=== PATIENT | male | born 1985 | race Two or more races ===

== ENCOUNTER 2019-11-01 12:05 | Emergency (ER) | payer SELFPAY ==
[~2019-11-01] VITALS: Ht 185.4 cm; Wt 86.6 kg
[2019-11-01 12:08] VITALS: BP 110/73
--- NOTE | 2019-11-01 12:09 | NUR ---
ED Nurse Note: Brought in by ambulance from home due to feeling weak, dizzy, anxious and tingling and numbness in hands since this morning. Patient has hx of panic attack. Patient started taking Zoloft about 1 week ago. Patient awake, alert, oriented x 4. Regular, unlabored breathing noted. Bed in lowest position.
[2019-11-01] MEDS ORDERED: DiphenhydrAMINE 50mg/ml Inj IVP ONE (12:15)
[2019-11-01] MEDS ORDERED: Metoclopramide 10mg/2ml Inj IVP ONE (12:15)
[2019-11-01] MEDS ORDERED: HYDROXYZINE HCL50 M1 PO (12:16)
[2019-11-01] MEDS ORDERED: ZOLOFT50 MG ORAL (12:17)
[2019-11-01 12:48] LABS: APPEARANCE,URINE CLEAR; BILIRUBIN, URINE NEGATIVE (NEGATIVE); COLOR,URINE AMBER; GLUCOSE, URINE (UA) NEGATIVE (NEGATIVE); KETONES,URINE 3+ (NEGATIVE); LEUKOCYTE ESTERASE ,URINE NEGATIVE (NEGATIVE); NITRITE,URINE NEGATIVE (NEGATIVE); PH,URINE 7 (4.5-8.0); PROTEIN,URINE 1+ (NEGATIVE); UROBILINOGEN,URINE NORMAL MG/DL (0.0-1.0)
[2019-11-01 12:50] LABS: BASOPHILS % (AUTO) 0.5 % (0.0-2.0); EOSINOPHILS % (AUTO) 0.1 % (0.0-3.0); HEMATOCRIT 48.4 % (42.0-52.0); HEMOGLOBIN 16.6 G/DL (14.2-18.0); LYMPHOCYTES % (AUTO) 15.8 % (20.0-45.0); MEAN CORPUSCULAR VOLUME 85 FL (80-99); MONOCYTES % (AUTO) 4.3 % (1.0-10.0); NEUTROPHILS % (AUTO) 79.4 % (45.0-75.0); PLATELET COUNT 311 K/UL (150-450); RED BLOOD COUNT 5.71 M/UL (4.70-6.10); RED CELL DISTRIBUTION WIDTH 10.7 % (11.6-14.8); WHITE BLOOD COUNT 7.9 K/UL (4.8-10.8)
[2019-11-01 12:56] LABS: ANION GAP 15 mmol/L (5-15); BLOOD UREA NITROGEN 12 mg/dL (7-18); CALCIUM 9.4 MG/DL (8.5-10.1); CARBON DIOXIDE 24 MMOL/L (21-32); CHLORIDE 101 MMOL/L (98-107); CREATININE 1.2 MG/DL (0.55-1.30); POTASSIUM 3.6 MMOL/L (3.5-5.1); SODIUM 140 MMOL/L (136-145)
--- NOTE | 2019-11-01 13:10 | NUR ---
ED Nurse Note: PT STATES THAT HE FELT BETTER AND NOT NAUSEAUS ANYMORE TAKING MEDICATIONS.
[2019-11-01 13:12] LABS: ALANINE AMINOTRANSFERASE 31 U/L (12-78); ALBUMIN 4.5 G/DL (3.4-5.0); ALBUMIN/GLOBULIN RATIO 1.1 (1.0-2.7); ALKALINE PHOSPHATASE 85 U/L (46-116); ASPARTATE AMINO TRANSFERASE 20 U/L (15-37); BILIRUBIN,TOTAL 1.2 MG/DL (0.2-1.0); CREATINE KINASE 86 U/L (26-308)
[2019-11-01 13:17] LABS: BILIRUBIN,DIRECT 0.2 MG/DL (0.0-0.3)
--- NOTE | 2019-11-01 13:28 | Diagnostic Imaging Report ---
Indication: Dyspnea Comparison: None A single view chest radiograph was obtained. Findings: Cardiomediastinal appearance is within normal limits for age. The lungs are clear. Pulmonary vascularity is appropriate. The diaphragmatic contour is smooth and costophrenic angles are sharp. No pleural effusions are identified. The bones are unremarkable. Impression: No acute findings
--- NOTE | 2019-11-01 13:49 | Emergency Room Report ---
History of Present Illness General Chief Complaint: Generalized Weakness Source: Patient Present Illness HPI 34-year-old male with history of anxiety brought in by paramedics due to feeling weak and anxious for several days. Patient reports that he used to take only hydroxyzine at night to help him sleep however has been cutting it back in 11/13 x 1 week after an urgent care that he went to a week ago started him on Zoloft 50 mg daily. Reports that he has not established a therapist yet and he does not believe that this is psychological and reports that since he gets the palpitations his heart related. Denies any drug use, chest pain, shortness of breath, smoking tobacco, alcohol intake. Reports to occasionally using marijuana. Patient went to a different emergency room few days ago, had a full work-up, was told to follow-up with her primary care provider, complains of nausea at this time. Vitals appear to be within normal limits. Denies suicidal homicidal ideations. Allergies: Coded Allergies: PENICILLINS (Verified Allergy, Unknown, 11/01/19) Patient History Past Medical History: see triage record Past Surgical History: unable to obtain Family History: none Immunizations: UTD Reviewed Nursing Documentation: PMH: Agreed; PSxH: Agreed Nursing Documentation-PMH Past Medical History: No History, Except For Hx Cardiac Problems: Yes - Hyperlipidemia, hypercalcemia Hx Neurological Problems: Yes - Anxiety Review of Systems All Other Systems: negative except mentioned in HPI Physical Exam Vital Signs Date Time Temp Pulse Resp B/P (MAP) Pulse Ox O2 Delivery O2 Flow Rate FiO2 11/01/19 11:58 98.6 100 18 132/80 (97) 11/01/19 12:08 100 Room Air Sp02 EP Interpretation: reviewed, normal General Appearance: alert/responsive, no apparent distress, GCS 15, non-toxic Head: atraumatic Eyes: PERRL, lids + conjunctiva normal ENT: hearing intact, no angioedema Neck: supple/symm/no masses, no meningismus Respiratory: effort normal, no wheezing, chest symmetrical Cardiovascular: regular rate, rhythm, no edema Cardiovascular #2: 2+ carotid (R), 2+ carotid (L), 2+ radial (R), 2+ radial (L) Gastrointestinal: non-tender, no mass, non-distended, no rebound/guarding, normal bowel sounds Musculoskeletal: normal inspection, gait & station normal, digits & nails normal Neurologic: oriented x3, sensory intact, normal speech Psychiatric: no suicidal/homicidal ideation, no delusions, anxious Skin: no rash, well hydrated Lymphatic: normal inspection, normal cervical nodes Medical Decision Making PA Attestation All my diagnosis and treatment plans were reviewed ad discussed with my supervising physician Dr. Holley Diagnostic Impression: Primary Impression: Anxiety ER Course 34-year-old male with history of anxiety brought in by paramedics due to feeling weak and anxious for several days. Patient reports that he used to take only hydroxyzine at night to help him sleep however has been cutting it back in 11/13 x 1 week after an urgent care that he went to a week ago started him on Zoloft 50 mg daily. Reports that he has not established a therapist yet and he does not believe that this is psychological and reports that since he gets the palpitations his heart related. Denies any drug use, chest pain, shortness of breath, smoking tobacco, alcohol intake. Reports to occasionally using marijuana. Patient went to a different emergency room few days ago, had a full work-up, was told to follow-up with her primary care provider, complains of nausea at this time. Vitals appear to be within normal limits. Denies suicidal homicidal ideations. Denies syncope and loss of consciousness Ddx considered but are not limited to: generalized anxiety disorder, panic attack, depression with psycotic featurs, bipolar disorder, drug overdose Vital signs: are WNL, pt. is afebrile H&PE are most consistent with: Anxiety ORDERS: Psychiatric order set, Reglan, Benadryl ED INTERVENTIONS: NS bolus, Reglan, Benadryl DISCHARGE: At this time pt. is stable for d/c to home. Will provide printed patient care instructions, and any necessary prescriptions. Care plan and follow up instructions have been discussed with the patient prior to discharge. Advised patient to establish psychiatrist, start taking Benadryl however discontinue hydroxyzine, continue with Zoloft however may want to modify the dosing after discussion with psychiatrist. Patient feels much better upon discharge, reports that he no longer feels weak. Patient to return to the emergency room with worsening symptoms. EKG Diagnostic Results Rate: normal Rhythm: NSR ST Segments: no acute changes Other Impression No acute ST changes Chest X-Ray Diagnostic Results Chest X-Ray Diagnostic Results : Chest X-Ray Ordered: Yes # of Views/Limited/Complete: 1 View Indication: Other Interpretation: no consolidation, no effusion, no pneumothorax, no acute cardiopulmonary disease Impression: No acute disease Electronically Signed by: Anamaria Pleitez PA-C Last Vital Signs Date Time Temp Pulse Resp B/P (MAP) Pulse Ox O2 Delivery O2 Flow Rate FiO2 11/01/19 12:08 89 16 Room Air 11/01/19 12:08 98.6 110/73 100 Disposition: HOME, SELF-CARE Condition: Stable Scripts Diphenhydramine HCl (Benadryl) 25 Mg Capsule 25 MG PO TID, #20 CAP Prov: Anamaria Aggarwal 11/01/19 Metoclopramide Hcl* (REGLAN*) 10 Mg Tablet 10 MG ORAL THREE TIMES A DAY, #14 TAB Prov: Anamaria Aggarwal 11/01/19 Referrals: NOT CHOSEN IPA/MD,REFERRING (PCP) Patient Instructions: Generalized Anxiety Disorder Additional Instructions: Take medication as directed, follow-up with a psychiatrist, you may either take Zoloft 50 mg every other day or take 25 mg daily. Avoid taking hydroxyzine. I will write for some Benadryl and Reglan for you. If worsening symptoms return to the emergency room. Increase oral hydration Anamaria Aggarwal Nov 01, 2019 13:49
[2019-11-01] MEDS ORDERED: REGLAN10 MG ORAL (13:50)
[2019-11-01] MEDS ORDERED: BENADRYL25 M3 PO (13:50)
[2019-11-01 13:57] VITALS: BP 109/70
--- NOTE | 2019-11-01 13:57 | NUR ---
ER DISCHARGE NOTE: Patient is cleared to be discharged per PA, pt is aox4, on room air, with stable vital signs. pt was given dc and prescription instructions, pt was able to verbalize understanding, pt id band and iv site removed without complications. pt is able to ambulate with steady gait. pt took all belongings.
== END 2019-11-01 13:57 | disposition home or self-care (01) ==
LOC: EDBD 12:05 → EMR 13:33
DX: F41.9 Anxiety disorder, unspecified (principal); E78.5 Hyperlipidemia, unspecified; Z88.0 Allergy status to penicillin
CPT/HCPCS: 36415; 71045; 80053; 80307; 81003; 82248; 82550; 84484; 85025; 93005; 96361; 96374; 96375; 99284; G0480; J1200; J2765; J7030